=== PATIENT | male | born 1960 | race Caucasian/White ===

== ENCOUNTER → 2023-08-24 | Outpatient (CLI) | payer MEDICARE, BC ==
--- NOTE | 2023-08-24 16:58 | P.SLEEP ---
History of Present Illness H&P Date: 08/24/23 Very pleasant 63-year-old male patient with known history of obstructive sleep apnea has been on CPAP therapy for more than 10 years. Is coming to establish care with me here in the office. His original study was done in [facility]. Patient has been utilizing his CPAP machine, ResMed Elite which is set at a pressure of 10 cm of water. He is using a Simplus full facemask. His machine has been functional. Nevertheless, he has issues with equipment. The fullface mask is a Simplus medium size, it is quite rotten and torn and leaking. His leak is in order of 100 L/min. His AHI is down to 1 while on treatment and the patient is averaging more than 8 hours of CPAP use per night and his compliance is in order of 100%. He continues to see the benefit. Over the years, he has gained around 40 pounds over the past 10 years. His current body mass index is 47.9. No snoring while on CPAP therapy. No major hypersomnia or sleepiness during the day. His current Red Oak score is at 8. No cardiac arrhythmias. No palpitations. No nocturnal chest pain. He is waking up alert and awake during the day. He goes to bed around 10 PM wakes up at 8:30 AM in the morning. No anxiety. No panic attacks. No heartburn. No sleep paralysis. Hallucinations. No cataplexy. No restlessness in his lower extremities. His comorbidities include diabetes mellitus type 2, hypertension, and hyperlipidemia. He also has had a previous history of pericardial effusion. Review of Systems Constitutional: Reports daytime sleepiness, Reports fatigue, Reports weight gain Eyes: denies as per HPI, denies blurred vision, denies bulging eye, denies decreased vision, denies diplopia, denies discharge, denies dry eye, denies irritation, denies itching, denies pain, denies photophobia, denies loss of peripheral vision, denies loss of vision, denies tunnel vision/blind spots Ears: deny: decreased hearing, ear discharge, earache, tinnitus Ears, nose, mouth and throat: Reports as per HPI Breasts: absent: as per HPI, gynecomastia Cardiovascular: Reports as per HPI Respiratory: Reports sleep apnea, Reports snoring Gastrointestinal: Reports as per HPI Genitourinary: Reports as per HPI Musculoskeletal: Reports as per HPI Musculoskeletal: absent: ankle pain, ankle stiffness, ankle swelling Integumentary: Reports as per HPI Neurological: Reports as per HPI Psychiatric: Reports as per HPI Endocrine: Reports as per HPI Hematologic/Lymphatic: Reports as per HPI Allergic/Immunologic: Reports as per HPI Past Medical History Past Medical History: Diabetes Mellitus, Hyperlipidemia, Hypertension, Sleep Apnea/CPAP/BIPAP Additional Past Medical History / Comment(s): Previous history of pericardial pericarditis, 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 He is obese. Past Surgical History: Adenoidectomy, Tonsillectomy Additional Past Surgical History / Comment(s): Resection of a seminal vesicle of tumor, appendectomy, tonsillectomy and adenoidectomy Past Psychological History: No Psychological Hx Reported Smoking Status: Never smoker Past Alcohol Use History: None Reported Past Drug Use History: None Reported Medications and Allergies Home Medications and Allergies Comment(s): Xigduo XR 245/1002 tablets a day, olmesartan 20 mg p.o. daily, Crestor 20 mg p.o. daily, Zoloft 50 mg p.o. daily. Physical Exam Morbidly obese, calm comfortable, body mass index of 47.9, the size of the neck is 20.5 inches. Red Oak score is at 8. The patient appeared well nourished and normally developed. Vital signs as documented. Head exam is unremarkable. No scleral icterus or corneal arcus noted. Neck is without jugular venous distension, thyromegaly, or carotid bruits. The patient is a Mallampati class IV with significant crowding of the posterior pharynx carotid upstrokes are brisk bilaterally. Lungs are clear to auscultation and percussion. Cardiac exam reveals the PMI to be normally sized and situated. Rhythm is regular. First and second heart sounds normal. No murmurs, rubs or gallops. Abdominal exam reveals normal bowel sounds, no masses, no organomegaly and no aortic enlargement. Extremities are nonedematous and both femoral and pedal pulses are normal. Examination of the skin revealed no evidence of significant rashes, suspicious appearing nevi or other concerning lesions. Neurologically, the patient is awake and alert and the patient does not have any focal neurological deficit. Cranial nerves are essentially intact. Assessment and Plan Plan: Obstructive sleep apnea, diagnosed more than 10 years ago through a sleep study that was done in [facility]. The patient has been successfully treated over the years and the patient is currently on a CPAP pressure of 10 cm of water. Hypersomnia improved with CPAP therapy Snoring improved with CPAP therapy Obesity with interval weight gain and the patient's current body mass index is 47.9 Diabetes mellitus type 2 Hypertension Hyperlipidemia History of seminal vesicular tumor, surgically resected. Plan I checked the patient CPAP unit. The machine is functional. The patient is utilizing the machine every night. Compliance check was done and the patient has adequate compliancy averaging around 8 hours of CPAP use per night and his AHI is down to 1. He is in need for new supplies. I gave him a sample of a Simplus medium size fullface mask. I also refilled all of his supplies including a climate line, mask, tubing and filters through [employer]. He was encouraged to lose weight. Current machine is functional. No need to replace the machine at this point. No need to repeat the study as the patient is effectively and successfully treated. Encourage weight loss. Treat comorbidities. Maintain regular sleep schedule. See me back in a years time in follow-up. No need to make any further adjustments. The patient will be kept with a CPAP pressure of 10 cm of water for now. Sleep Note - Sleep Note Sleep Note: Temperature: Pulse Rate: Respiratory Rate: Blood Pressure: SpO2: Height: Weight: BMI: Neck Circumference:
== END ==
LOC: 3 N SLEEP 15:27
PROVIDERS: ATTEND Internal Medicine Critical Care Medicine
DX: G47.33 Obstructive sleep apnea (adult) (pediatric) (principal); G47.10 Hypersomnia, unspecified; R06.83 Snoring; E66.9 Obesity, unspecified; E11.9 Type 2 diabetes mellitus without complications; I10 Essential (primary) hypertension; E78.5 Hyperlipidemia, unspecified; Z68.42 Body mass index [BMI] 45.0-49.9, adult
CPT/HCPCS: 99202

== ENCOUNTER → 2023-08-27 | Day surgery (SDC) | payer MEDICARE, BC ==
[~2023-08-27] MED LIST: LIDOCAINE 1% (10MG/ML) FOR IV START INTRADERMA PRN; PROPOFOL 10 MG/ML 20 ML VIAL IV ONE
[2023-08-27] MEDS: LACTATED RINGERS 1,000 ML IV SCH (14:27)
[2023-08-27 14:32] LABS: Glucose,Whole Blood 94 mg/dL (70-110)
[2023-08-27 14:58] VITALS: RESP 16; TEMP 97.4
--- NOTE | 2023-08-27 16:01 | P.PCN ---
Date of Procedure: 08/27/23 Procedure(s) Performed: BRIEF HISTORY: Patient is a 63-year-old pleasant white male scheduled for an elective colonoscopy as a part of screening for colon cancer. PROCEDURE PERFORMED: Colonoscopy with snare polypectomy. PREOPERATIVE DIAGNOSIS: Screening for colon cancer. IV sedation per Anesthesia. PROCEDURE: After informed consent was obtained, the patient, was brought into the endoscopy unit. IV sedation was administered by Anesthesia under continuous monitoring. Digital rectal examination was normal. Initially the Olympus CF-160 flexible video colonoscope was then inserted in the rectum, gradually advanced into the cecum without any difficulty. Careful examination was performed as the scope was gradually being withdrawn. Ileocecal valve and the appendiceal orifice were visualized and appeared normal. Prep was excellent. Mucosa of the cecum, had 4 polyps, the largest measuring 2.5 cm in size and broad-based removed by piecemeal snare polypectomy and complete polypectomy accomplished. Adjacent to this area there were 3 other polyps measuring between 5 mm to 1 cm in size removed by snare polypectomy. In the ascending colon there was a 5 mm and 1 cm polyp by snare polypectomy. In the descending colon there was a 1.5 cm polyp removed by snare polypectomy. In the proximal sigmoid colon there was a 5 mm polyp that was removed by cold snare polypectomy. Rest of the sigmoid colon, and rectum appeared normal. Retroflexion was performed in the rectum and no lesions were seen. The patient tolerated the procedure well. IMPRESSION: 2.5 cm broad-based cecal polyp status post snare polypectomy and complete polypectomy accomplished 3 of the polyps in the cecum measuring between 5 mm to 1 cm in size removed by snare polypectomy 5 mm and 1 cm ascending colon polyp status post polypectomy 1.5 cm descending colon polyp status post polypectomy 5 mm proximal sigmoid colon polyp status post polypectomy RECOMMENDATIONS: Findings of this examination were discussed with the patient as well as his family. He was advised to follow-up with the biopsy results. If the biopsy reveals adenoma he can have a repeat colonoscopy in 3 years..
[2023-08-27 16:25] VITALS: BP 112/76; PULSE 65
[2023-08-27 16:49] LABS: Glucose,Whole Blood 80 mg/dL (70-110)
== END ==
LOC: ORWHC2ENDO 13:09
PROVIDERS: ATTEND Internal Medicine Gastroenterology
DX: Z12.11 Encounter for screening for malignant neoplasm of colon (principal); K63.5 Polyp of colon; I10 Essential (primary) hypertension; E78.5 Hyperlipidemia, unspecified; E11.9 Type 2 diabetes mellitus without complications; G47.33 Obstructive sleep apnea (adult) (pediatric); Z79.84 Long term (current) use of oral hypoglycemic drugs; Z90.49 Acquired absence of other specified parts of digestive tract; Z98.890 Other specified postprocedural states; Z79.899 Other long term (current) drug therapy
CPT/HCPCS: 88305; 45385; J2704